=== PATIENT | male | born 1990 | race Two or more races ===

== ENCOUNTER 2022-02-26 01:25 | Emergency (ER) | payer OTHER ==
[~2022-02-26] VITALS: Ht 172.7 cm; Wt 81.6 kg
--- NOTE | 2022-02-26 01:34 | NUR ---
Bibself c/o testicular pain x 3 days 9/10 pain scale. Pt A/Ox4. Tolerating R/A well with no sob. Pt Ambulatory and changed into gown.
--- NOTE | 2022-02-26 01:40 | NUR ---
DR. KEEGAN MITCHELL AT PT'S BEDSIDE WITH MALE WASH OIL PUMP OPERATOR HELPER FOR TESTICULAR EXAM
[2022-02-26] MEDS ORDERED: KETOROLAC TROMETHAMINE INJ 30 MG/ML VIAL ONE (01:48)
[2022-02-26] MEDS ORDERED: CEFTRIAXONE 1GM BAG (ER ONLY) 50 ML IV ONE ×2 (01:48→02:00)
[2022-02-26] MEDS ORDERED: IV NS 0.9% 1,000 ML BAG IV ONE (02:00)
[2022-02-26] MEDS ORDERED: KETOROLAC TROMETHAMINE INJ 30 MG/ML VIAL IV ONE (02:00)
--- NOTE | 2022-02-26 02:03 | NUR ---
BLOOD COLLECTED AND SENT TO LAB
--- NOTE | 2022-02-26 02:15 | NUR ---
OFFERED PT URINAL; NOT ABLE TO URINATE AT THIS TIME. WILL F/U WITH URINE SAMPLE
[2022-02-26 02:30] LABS: BASOPHILS # (AUTO) 0.1 K/uL (0.0-0.2); BASOPHILS % (AUTO) 0.9 % (0.0-2.0); EOSINOPHILS % (AUTO) 0.6 % (0.0-6.0); HEMATOCRIT 41 % (39-51); HEMOGLOBIN 14.3 g/dL (13.5-17.5); LYMPHOCYTES # (AUTO) 2.6 K/uL (0.8-4.8); LYMPHOCYTES % (AUTO) 24.7 % (20.0-44.0); MEAN CORPUSCULAR HGB CONC 35 g/dl (31.0-36.0); MEAN CORPUSCULAR VOLUME 90 fL (80-96); MONOCYTES # (AUTO) 0.9 K/uL (0.1-1.30); MONOCYTES % (AUTO) 8.3 % (2.0-12.0); NEUTROPHILS # (AUTO) 6.8 K/uL (1.8-8.9); NEUTROPHILS % (AUTO) 65.5 % (43.0-81.0); PLATELET COUNT (AUTO) 490 K/uL (150-450); RED BLOOD CELL COUNT(AUTO) 4.55 MIL/uL (4.5-6.0); WHITE BLOOD COUNT (AUTO) 10.5 K/uL (4.3-11.0)
--- NOTE | 2022-02-26 02:30 | NUR ---
US TECH AT BED SIDE
[2022-02-26 02:41] LABS: CALCIUM, SERUM 8.8 mg/dL (8.5-10.1); CREATININE 0.9 mg/dL (0.6-1.3); POTASSIUM 3.7 mmol/L (3.5-5.1)
--- NOTE | 2022-02-26 03:02 | NUR ---
URINE COLLECTED AND SENT TO LAB
[2022-02-26] MEDS ORDERED: DOXY-226 PO (03:05)
[2022-02-26] MEDS ORDERED: IBUP-1957 PO (03:05)
[2022-02-26 03:10] VITALS: BP 145/89
--- NOTE | 2022-02-26 03:10 | NUR ---
Patient discharged to home in stable condition. Written and verbal after care instructions given. Patient verbalizes understanding of instruction.IV removed. Catheter intact and site benign. Pressure and 4x4 applied to site. No bleeding noted.
[2022-02-26 03:56] LABS: BILIRUBIN,URINE NEGATIVE (NEGATIVE); COLOR,URINE YELLOW (YELLOW); LEUKOCYTE ESTERASE ,URINE NEGATIVE (NEGATIVE); NITRITE, URINE NEGATIVE (NEGATIVE); PROTEIN,URINE NEGATIVE (NEGATIVE); UGLUCOSE NEGATIVE (NEGATIVE); UROBILINOGEN,URINE 0.2 EU/dL (0.2)
== END 2022-02-26 03:10 | disposition home or self-care (01) ==
LOC: ER 01:27
DX: N45.1 Epididymitis (principal); N45.2 Orchitis
CPT/HCPCS: 99284; 96365; 96375; 76870; 85025; 80048; 81003; 36415; 85730; J1885; J7030; J0696